=== PATIENT | female | born 1970 | race Caucasian/White ===

== ENCOUNTER → 2018-03-29 | Outpatient (CLI) | payer BC ==
[~2018-03-29] VITALS: Ht 167.6 cm; Wt 86.6 kg
[~2018-03-29] MED LIST: ADVIL PM1 TABLET PO; FLINTSTONES WIT18 MG PO; FOLIC ACID1 MG PO; KLONOPIN1 MG PO; LEXAPRO10 MG PO; MAXALT10 MG PO; MELATONIN5 M1 PO; NAPROSYN500 MG PO; NORCO 5/3251 TABLET PO; PREDNISONE20 MG PO; PROTONIX40 MG PO; REQUIP2 MG PO; SKELAXIN800 MG PO; TRAMADOL HCL50 MG PO; VALIUM5 MG PO; VITAMIN B122500 MCG PO; VITAMIN D250000 UNIT PO; ZANTAC150 MG PO
== END | disposition home or self-care (01) ==
LOC: AMB 07:40
PROC: 0DJ08ZZ Inspection of Upper Intestinal Tract, Via Natural or Artificial Opening Endoscopic (ICD-10-PCS; principal; 2018-03-29)
DX: K44.9 Diaphragmatic hernia without obstruction or gangrene (principal); K21.9 Gastro-esophageal reflux disease without esophagitis; Z98.84 Bariatric surgery status; D50.9 Iron deficiency anemia, unspecified; J45.909 Unspecified asthma, uncomplicated
CPT/HCPCS: J2250; J3010